=== PATIENT | male | born 1990 | race Caucasian/White ===

== ENCOUNTER 2016-05-20 20:12 | Inpatient (IN) | payer OTHER ==
--- NOTE | 2016-05-20 21:17 | EDPHY ---
H & P Smoking Status: Light smoker Time Seen by Provider: 05/20/16 20:36 HPI/ROS: HPI Unable to sleep. 25-year-old male by private vehicle with his parents. 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 He reports that he has a history of bipolar disorder. He has been on lithium but is not taking it and the last year. He reports that about a week ago he started feeling more pressure from the world and felt he was on the verge of a psychotic break. He started taking his lithium again at 300 mg daily a week ago. He reports that his symptoms have continued. He reports that he does not feel he is on the verge of a psychotic break right now but states that he has been unable to sleep for days and thinks he needs help. He states he is not suicidal or homicidal. His parents drove from [place] to bring him to the emergency department here and are present in the examination room with him. ROS: Constitutional: No fever, no chills. No weakness. Eyes: No discharge. No changes in vision. ENT: No sore throat. No nasal congestion or rhinorrhea. Respiratory: No cough. No shortness of breath. Cardiac: No chest pain, no palpitations. Gastrointestinal: No abdominal pain, no vomiting, no diarrhea. Genitourinary: No hematuria. No dysuria or increased frequency with urination. Musculoskeletal: No back pain. No neck pain. No myalgias or arthralgias. Skin: No rashes. Neurological: No headache. No focal weakness or altered sensation. Past medical history: As above. Social history: As above. Here with his parents. Physical Exam: General Appearance: Alert, flat affect. This patient is responding to questions appropriately and in full sentences. This patient appears well- hydrated and well-nourished. Eyes: Pupils equal and round no pallor or injection. No lid edema, erythema or injection. ENT, Mouth: Mucous membranes are moist. The pharyngeal tissues are unremarkable. No edema or swelling. No asymmetry suggestive of abscess. No erythema or exudates. Respiratory: There are no retractions, lungs are clear to auscultation with good air movement bilaterally. Cardiovascular: Regular rate and rhythm. No murmur. Gastrointestinal: Abdomen is soft and nontender, no masses, bowel sounds normal. No focal tenderness at McBurney's point. No Savage sign. Neurological: Motor sensory function is grossly intact. Cranial nerves are normal. Gait is normal. Skin: Warm and dry, no rashes. Musculoskeletal: Neck is supple and nontender. Extremities are symmetrical. All joints range without pain or impingement. Psychiatric: No agitation. Flat affect. Database: EKG: Imaging: Procedures: Emergency department course: After my evaluation of the patient I discussed his presentation with [facility]. They will see him shortly for a preliminary evaluation. Customary blood work ordered. 10:45 p.m., patient awaiting evaluation by [facility]. Care will be turned over to Dr. Griggs 11:00 p.m.. Differential Diagnosis: The differential diagnosis on this patient includes but is not limited to bipolar, schizophrenia, depression. This represents a partial list of diagnoses considered. These considerations are based on history, physical exam , past history, reassessment and diagnostic testing. (Zee Weems) Constitutional: Initial Vital Signs Temperature (C) 36.9 C 05/20/16 20:22 Heart Rate 110 H 05/20/16 20:22 Respiratory Rate 18 05/20/16 20:22 Blood Pressure 154/94 H 05/20/16 20:22 O2 Sat (%) 98 05/20/16 20:22 O2 Delivery Mode Room Air Allergies/Adverse Reactions: Sulfa (Sulfonamide Antibiotics) Allergy (Verified 02/16/15 16:34) Home Medications: Medication Instructions Recorded [place] 02/16/15 Medical Decision Making ED Course/Re-evaluation: 1:30 a.m.- The patient has become more agitated throughout his time in the emergency room, pacing, trying to leave, removing his IV. He has been moved to room 16. I have placed him on a detainer because of this. He is currently awaiting further mental health assessment. He tells me I just want to get out of here. I will order a dose of Zyprexa. 4:30 a.m.- The patient became agitated again and ran out of his room in an attempt to leave the emergency room and began to yell. [place] police who were on scene with another patient responded and the patient was tased once. He was brought back to his room and given a dose of Haldol. He did not have any chest pain, shortness of breath, palpitations. 7:00 a.m.- The patient received a 2nd dose of Haldol around 5:00 a.m. for continued agitation with improvement in his mentation. He is now resting. The case is signed out to the oncoming provider Dr. Marco Jarrell. The patient is still awaiting mental health evaluation. (Elisa Griggs) Other Provider: I assumed care of the patient at 7:00 a.m. pending psychiatric evaluation. Update at 7:30 a.m.: After evaluation by the [facility] psychiatric shirt operator the patient was felt to be dangerous to himself. The patient was placed on an M1 psychiatric hold with plans to admit him to an inpatient psychiatric facility. Update at 11:00 a.m.: The patient has been accepted for inpatient psychiatric admission by Dr. Gunderson at [facility]. I have filled out the [facility] transfer paperwork. (Andre Jarrell) - Data Points Laboratory Results: Laboratory Results 05/20/16 21:25 05/20/16 21:25 Medications Given: Discontinued Medications Haloperidol Lactate (Haldol Injection) 5 mg IM EDNOW ONE Stop: 05/21/16 04:34 Last Admin: 05/21/16 04:39 Dose: 5 mg Haloperidol Lactate (Haldol Injection) 5 mg IM EDNOW ONE Stop: 05/21/16 04:59 Last Admin: 05/21/16 05:02 Dose: 5 mg Olanzapine (Zyprexa Zydis) 10 mg PO EDNOW ONE Stop: 05/21/16 01:36 Last Admin: 05/21/16 01:41 Dose: 10 mg Departure - Departure Disposition: Other Psych, Not [place] Clinical Impression: Bipolar 1 disorder Condition: Good Referrals: NONE *PRIMARY CARE P,. [Primary Care Provider] - As per Instructions
[2016-05-20 21:36] LABS: % IMMATURE GRANULYOCYTES 0.3 % (0.0-1.1); ABSOLUTE IMMATURE GRANULOCYTES 0.03 10^3/uL (0.00-0.10); ADD DIFF? NO; ADD MORPH? NO; ADD SCAN? NO; ATYPICAL LYMPHOCYTE FLAG 20 (0-99); FRAGMENT RBC FLAG 0 (0-99); HEMATOCRIT 50.4 % (40.0-51.0); HEMOGLOBIN 17.9 g/dL (13.7-17.5); LEFT SHIFT FLG 0 (0-99); LIPEMIA HEMOLYSIS FLAG 90 (0-99); MEAN CELL HEMOGLOBIN 33.3 pg (27.9-34.1); MEAN CELL HEMOGLOBIN CONCENTR. 35.5 g/dL (32.4-36.7); MEAN CELL VOLUME 93.9 fL (81.5-99.8); MEAN PLATELET VOLUME 9.4 fL (8.7-11.7); PLATELET CLUMPS FLAG 0 (0-99); PLATELET COUNT 254 10^3/uL (150-400); RED BLOOD CELL COUNT 5.37 10^6/uL (4.40-6.38); RED CELL DISTRIBUTION WIDTH 12.3 % (11.5-15.2)
[2016-05-20 21:50] LABS: ALANINE AMINOTRANSFERASE 48 IU/L (21-72); ALBUMIN 4.9 g/dL (3.5-5.0); ALKALINE PHOSPHATASE 82 IU/L (38-126); ANION GAP 17 mEq/L (8-20); ASPARTATE AMINOTRANSFERASE 33 IU/L (17-59); BILIRUBIN,TOTAL 0.9 mg/dL (0.1-1.4); BILIRUBIN-CONJUGATED 0.5 mg/dL (0.0-0.5); BILIRUBIN-UNCONJUGATED 0.4 mg/dL (0.0-1.1); CALCIUM 9.9 mg/dL (8.5-10.4); CARBON DIOXIDE 25 mEq/l (22-31); CHLORIDE 102 mEq/L (97-110); CREATININE 1.2 mg/dL (0.7-1.3); ETHANOL SERUM < 10 mg/dL (0-10); GLOMERULAR FILTRATION RATE > 60; GLUCOSE 88 mg/dL (70-100); LITHIUM 0.8 mEq/L (0.6-1.2); POTASSIUM 4.6 mEq/L (3.5-5.2); SODIUM 139 mEq/L (134-144); TOTAL PROTEIN 7.9 g/dL (6.3-8.2)
[2016-05-21] MEDS ORDERED: OLANZapine DISINTEGR 10 MG TAB PO ONE (01:35)
[2016-05-21] MEDS ORDERED: OLANZapine DISINTEGR 10 MG TAB ONE (01:35)
[2016-05-21] MEDS ORDERED: NICOTINE POLACRILEX 2 MG GUM B ONE (01:38)
[2016-05-21] MEDS ORDERED: NICOTINE POLACRILEX 2 MG GUM B PRN (01:41)
[2016-05-21] MEDS ORDERED: HALOPERIDOL LACT 5 MG/ML INJ IM ONE ×2 (04:33→04:58)
[2016-05-21] MEDS ORDERED: MAGNESIUM HYDROXIDE 30 ML UDCUP PO PRN (21:00)
[2016-05-21] MEDS ORDERED: MAG HYDROX/AL HYDROX/SIMETH 30 ML UDCUP PO PRN (21:00)
[2016-05-21] MEDS: LORazepam 0.5 MG TAB PO PRN (22:53)
[2016-05-22] MEDS ORDERED: QUEtiapine FUMARATE 50 MG TAB PO PRN (02:16)
--- NOTE | 2016-05-22 08:56 | GCON ---
[f rep st] CONSULTATION INTERNAL MEDICINE CONSULT. DATE OF CONSULTATION: 05/22/2016 REFERRING PHYSICIAN: Cheryl Cabrales MD REASON FOR REFERRAL: Medical evaluation. HISTORY OF PRESENT ILLNESS: Jose D is a 25-year-old, otherwise healthy man, who comes in with increase d bipolar symptoms. He has a history previously of bipolar disease; however, when he was doing well he stopped his lithium. Over the past several weeks, he started feeling more escalated so started h is lithium a week ago; however, that did not change his mood and he was brought in by his parents. He otherwise feels well. He denies any recent fevers, chills, illnesses. He has had no coughing, sh ortness of breath, dyspnea on exertion. Denies any abdominal complaints, urinary symptoms, bowel david nges, lower extremity edema, joint pains, neurologic symptoms. He does get some chest pressure only when he gets anxious. He is not having any of that now. REVIEW OF SYSTEMS: A 10-point review of systems was done and is negative except as stated in the HPI . PAST MEDICAL HISTORY: Left shoulder surgery. 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 He smokes 3-4 cigarettes a day and drinks 3-4 alcoholic beverages per day, but he says he tries not to drink every day. He also smokes occasional marijuana. FAMILY HISTORY: Mother and dad are healthy. CURRENT MEDICATIONS: He was taking lithium 300 mg daily prior to admission. ALLERGIES: Sulfa. PHYSICAL EXAMINATION: VITAL SIGNS: Afebrile. Heart rate is 85, blood pressure 145/71, respirations 12. He is 97% on room air. GENERAL: He is a thin healthy-appearing 25-year-old, in no distress. He is alert and oriented. Speech is fluent. HEENT: Atraumatic. Pupils equal, extraocular movement s intact. Mucous membranes moist. Oropharynx clear. NECK: Supple. No adenopathy. HEART: Regula r rate and rhythm. No murmurs, gallops, or rubs. LUNGS: Clear to auscultation. No wheeze, rhonchi , or rales. ABDOMEN: Soft, nontender, nondistended. No masses. Normoactive bowel sounds. EXTREMI TIES: No clubbing, cyanosis, or edema. SKIN: Intact. No rash. NEUROLOGICAL: He is intact. [facility] ULOSKELETAL: No joint deformities or effusions. LABORATORY DATA: CBC is within normal limits. Chemistry and electrolytes are normal. LFTs are norm al. Urinalysis is negative. [place] level was 0.8. ASSESSMENT AND PLAN: 1. A 25-year-old, admitted with feeling more pressure and felt he was on the verge of a psychotic br eak. Please see Dr. Cabrales' assessment and plan for full details. 2. Tobacco use. Tobacco cessation counseling. Thank you for the consultation. /[id number]/MODL
[2016-05-22] MEDS ORDERED: LITHIUM CARBONATE ER 450 MG TAB PO SCH (09:00)
[2016-05-22] MEDS ORDERED: BENZTROPINE MESYLATE 2 MG/2 ML INJ IM ONE (13:30)
[2016-05-22] MEDS ORDERED: diphenhydrAMINE 25 MG CAP PO ONE ×2 (14:01→14:30)
[2016-05-22] MEDS: LORazepam 0.5 MG TAB PO PRN (18:29)
[2016-05-22] MEDS ORDERED: risperiDONE 0.5 MG TAB PO SCH (21:00)
[2016-05-22] MEDS: LITHIUM CARBONATE 300 MG CAP PO SCH (21:34)
[2016-05-22] MEDS: diphenhydrAMINE 50 MG CAP PO SCH (21:51)
--- NOTE | 2016-05-22 22:58 | SOAPPROG ---
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 Was dxd with SZP at that time, on Haldol Dec then Dx changed to BMD and remained on [place] for 1.5yr until self taper off 1yr ago. 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 Received Zyprexa 10mg x 1 in ED. Later, agitated and charged an RN in ED and was tazed by nearby police and fire dispatcher. Received Haldol 5mg IM x 2. Received Eskalith 450mg this AM. Dictated Psych Admission to follow. Plan: -Discussed med options- will start with low-dose Risperdal at 0.5mg, with Benadryl 50mg qhs -start [place] at lower dose 300mg qam. Pt reports hx of maintenance at 600mg -add cogentin 1mg bid prn -cont on [facility] 05/22/16 16:47 This am, noted with significant tongue dystonia and difficulty speaking, occurring several times during interview. Agreed to Cogentin 1mg IM, and then also Benadryl 50mg po x 1 with resolution of dystonia. Reported ongoing psychotic sxs of thought insertion that he was "good, powerful , creative", Thought withdrawal, occasional thought broadcasting, and AH of others commenting on his thoughts. Denied SI/HI. Poor sleep, and mood swings/ affective lability. Presently calm with good insight, states he tries to keep self in "present" moment, by actions such as smelling lotion on his hands, when experiencing psychosis. 05/22/16 23:30 Objective: Vital Signs Temp Pulse Resp BP Pulse Ox 37.0 C 85 12 145/71 H 97 05/22/16 06:14 05/22/16 06:14 05/22/16 06:14 05/22/16 06:14 05/22/16 06:14 - Pending Discharge Pending Discharge Within 24 Hours: No Pending Discharge Within 48 Hours: No ICD10 Worksheet Patient Problems: Problems Problem Status Diagnosed Bipolar 1 disorder Acute
[2016-05-23] MEDS: LORazepam 0.5 MG TAB PO PRN (04:54)
[2016-05-23] MEDS: LITHIUM CARBONATE 300 MG CAP PO SCH ×2 (08:59→21:36)
[2016-05-23] MEDS ORDERED: risperiDONE 0.5 MG TAB PO SCH (10:42)
--- NOTE | 2016-05-23 10:49 | SOAPPROG ---
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 Pt was dx with SCZ 3 years ago when hospitalized in [place], [place] and was put on Haldol dec. He was then rediagnosed as Bipolar and put on [place]. He tapered off [place] and began not sleeping and having thought insertion and other psychotic sx. Plan:Increase Riperdal to 1mg QHS tonight-no longer having EPS Pt agrees to sign in Vol. continue [place] 300mg BID-currently has no sx of erik 05/23/16 10:45 Subjective: "Good." Objective: Vital Signs Temp Pulse Resp BP Pulse Ox 36.6 C 102 H 16 138/80 H 98 05/23/16 04:53 05/23/16 04:53 05/23/16 04:53 05/23/16 04:53 05/23/16 04:53 Pt is A+O x4 mood-"good" affect-flat + paranoid I thoughts-vague, delayed denies S/H I denies current A/V H recent delusions-thought insertion speech-monotone memory-intact no NOE I/J-good - Time Spent With Patient Time Spent With Patient: 25' - Pending Discharge Pending Discharge Within 24 Hours: No Pending Discharge Within 48 Hours: No ICD10 Worksheet Patient Problems: Problems Problem Status Diagnosed Bipolar 1 disorder Acute
[2016-05-23] MEDS ORDERED: FLU VACC QS 2016-17(3-64YR)/PF 0.5 ML SYR (FLUARIX QUAD) IM ONE (11:57)
[2016-05-23] MEDS: diphenhydrAMINE 50 MG CAP PO SCH (21:36)
[2016-05-24] MEDS: NICOTINE POLACRILEX 2 MG GUM B PRN ×3 (02:15→13:45)
[2016-05-24] MEDS: LORazepam 0.5 MG TAB PO PRN ×3 (06:42→13:46)
[2016-05-24] MEDS: LITHIUM CARBONATE 300 MG CAP PO SCH ×2 (10:53→19:56)
--- NOTE | 2016-05-24 11:50 | SOAPPROG ---
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 Pt was dx with SCZ 3 years ago when hospitalized in [place], [place] and was put on Haldol dec. He was then rediagnosed as Bipolar and put on [employer]. He tapered off [employer] and began not sleeping and having thought insertion and other psychotic sx. Plan: Will D/C Risperdal and start Zyprexa 15mg QHS Pt signed in Vol. continue [employer] 300mg BID and check level 05/24/16 11:46 Subjective: "I feel paranoid." Objective: Vital Signs Temp Pulse Resp BP Pulse Ox 36.8 C 89 16 139/91 H 96 05/24/16 06:00 05/24/16 06:00 05/24/16 06:00 05/24/16 06:00 05/24/16 06:00 Pt is A+O x4 mood-"paranoid" affect-blunted denies A/V H + thought insertion + paranoid delusions slept 0 hours last night thoughts-vague, delayed, paranoid memory-fair conc-poor + thought blocking no S/H I I/J-fair - Time Spent With Patient Time Spent With Patient: 20' - Pending Discharge Pending Discharge Within 24 Hours: No Pending Discharge Within 48 Hours: No ICD10 Worksheet Patient Problems: Problems Problem Status Diagnosed Bipolar 1 disorder Acute
[2016-05-24] MEDS: BENZTROPINE MESYLATE 1 MG TAB PO PRN ×2 (13:38→13:46)
--- NOTE | 2016-05-24 15:43 | BAPA ---
[f rep st] ADMISSION PSYCHIATRIC ASSESSMENT DATE OF SERVICE: 05/22/2016 CHIEF COMPLAINT: "My parents convinced me to come in because I was having the same symptoms as my previous (psychiatric) commitment (three years ago)." HISTORY OF PRESENT ILLNESS: The patient is a 25-year-old male. Never . No children. Recent graduate from with honors, with master' s in engineering, environmental and civil. Reports one week prior to admission he started feeling pressure from the world and that he was on the verge of a psychotic break. He started feeling extremely alone in the world and he was not sleeping for several days prior to admission. At this time he resumed lithium 300 mg daily, which he had not been taking for approximately one year hoping symptoms would get better under control, but they continued to worsened and he endorsed psychotic symptoms of experiencing auditory hallucinations of others commenting on his thoughts, thought insertion "that I am powerful, good, creative." Also felt withdrawal and occasional thought blocking. He has also been experiencing mood swings ranging from crying spells/tearfulness to extreme irritability and short fused. He denied any suicidal or homicidal ideation. One month prior to worsening of symptoms, he did acknowledge a decreased need for sleep from normal 8 hours to approximately 3 to 4 hours per night. He denied any substance use history; however, drinks one cup of beer daily with last drink on 05/20/2016. The patient reports similar psychotic symptoms resulting in his first psychiatric hospitalization three years ago (this is the second), having been diagnosed with schizophrenia, but thereafter his diagnosis was changed to bipolar. Of note, while in emergency department following evaluation by [facility], the patient became acutely agitated and wanted to change rooms because it reminded him too much of his first hospitalization experience. He apparently became verbally aggressive and charged a nurse after which a nearby police officer booking tased him. He was given 5 mg IM Haldol twice and this was subsequent to 10 mg olanzapine given earlier upon arrival in the ED. There have been no further such incidents. PAST PSYCHIATRIC HISTORY: As noted above. First psychiatric hospitalization in [place] three years ago. Diagnosed with schizophrenia, started on Haldol decanoate. Approximately 1-1/2 years ago, diagnosis changed to Bipolar and patient was prescribed lithium 600 mg daily. One year ago after feeling stable, the patient self-tapered lithium to discontinuation. He has not seen a psychiatrist in over one year, however, has been working with a therapist named Dr. Holloway. HISTORY OF HARM TO SELF/OTHERS: The patient denied any history of suicidal attempts or history of SI/HI or harm to others. HISTORY OF TRAUMA: The patient denied any childhood trauma nor any physical, emotional or sexual abuse history. PAST MEDICAL HISTORY: L shoulder arthroscopic surgery 2009, due to injuries from playing football when younger and subsequent re-injuries due to outdoor sporting activities. Also hx back injury requiring back brace x 3mo several years ago. No other acute/current medical issues. CURRENT MEDICATIONS: [place] 300 mg daily, self-started approximately three days ago from his own previous supply. ALLERGIES: Sulfa. SOCIAL HISTORY: The patient reports a supportive family. Currently lives in [place] with three roommates and they get along well. Roommates have recently been worried about him because of his insomnia. The patient's father is and remarried. Mother was diagnosed with cancer and . 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 He denies being spiritual or sabianist. Reports he enjoys building things and seeing how they work. Also enjoys outdoor activities such as skiing, hiking, camping and playing soccer. PAST LEGAL HISTORY: Currently has a legal issue which is being deferred until March 2017 after which charges will be wiped from his records. He was charged with felony theft and misdemeanor criminal mischief related to stealing a bike valued over $5000. Apparently this occurred during his psychotic break and he reports he did not steal it, but it was a miscommunication. No other legal history. FAMILY PSYCHIATRIC HISTORY: His mother had diagnosis of schizophrenia. MENTAL STATUS EXAM ON ADMISSION: Patient was a casually dressed, tall, well kempt, male with good eye contact. Normal volume and rate of speech. Normal psychomotor activity. During interview, however, significant tongue dystonia occurred several times, affecting ability to speak/form words (patient was given Cogentin and Benadryl with resolution). Mood was "okay." Affect was controlled. Thought process/content: linear, reality based, but notable for periods of occasional thought blocking. Endorsed thought insertion "that I am powerful, good, creative." Also experienced thought withdrawal, feeling others take thoughts from his head. Positive auditory hallucinations of others commenting on his thoughts recently, although not currently. He denied any visual or olfactory hallucinations. No flight of ideas or racing thoughts. Occasional ideas of reference. Reports trying to maintain himself in the present state and reality based by using some coping strategies such as smelling moisturizer on his hands. Insight: Good. Judgment: Good. Denied any suicidal or homicidal ideation. Alert and oriented x 4. Recognizes need for psychiatric help. ASSESSMENT: This is a 25-year-old male with a history of schizophrenia diagnosed during first psychotic break and first hospitalization three years ago. Now experiencing similar symptoms and seeking help before symptoms worsen. Approximately two years ago schizophrenia diagnosis was changed to bipolar and Haldol was changed to lithium. No meds or psychiatric treatment times one year. Current presentation and symptomatology are suggestive of schizophrenia or schizoaffective disorder, but will need to further obtain time line of mood symptoms and associated psychotic symptoms in order to clarify diagnosis. The patient is on M1 and psychiatric hospitalization is indicated for stabilization and treatment. DIAGANOSIS ON ADMISSION: 1. Schizophrenia, acute exacerbation; r/o Schizoaffective d/o, bipolar type acute exacerbation vs BMD manic with psychotic features 2. Acute Dystonia PLAN: 1. Continue M1 hold. 2. Patient received lithium (Eskalith 450 mg) this a.m. Approximately 24 hours earlier, the patient received 10 mg IM Haldol and Zyprexa 10 mg. This a.m. due to evidence of dystonia, the patient received Cogentin 1 mg IM and Benadryl 50 mg p.o. with resolution of EPS. 3. Risperdal 0.5 mg p.o. q.h.s. This is available in long-acting injectable. Not currently indicated, however. Prior history indicates patient required Haldol decanoate IM. Need to obtain history from previous hospitalization for further details. 4. Benadryl 50 mg p.o. q.h.s., will help with sleep and offset any EPS from Risperdal. Add Cogentin 1 mg p.o. b.i.d. p.r.n. for now. 5. Change lithium to 300 mg p.o. daily. Will consider either increase or discontinue. Reports stability on 600 mg daily in the past. Will need to further assess to determine whether mood stabilizer necessary versus just a neuroleptic. [place] also may have contributed to precipitating EPS by antipsychotics. 6. Continue current safety restrictions and unit restriction. ESTIMATED LENGTH OF STAY: Four to five days. /[id number]/MODL MTDClau
[2016-05-24] MEDS: diphenhydrAMINE 50 MG CAP PO SCH (19:56)
[2016-05-24] MEDS: OLANZapine DISINTEGR 5 MG TAB PO SCH (19:56)
[2016-05-24] MEDS ORDERED: OLANZapine 2.5 MG TAB PO SCH (21:00)
[2016-05-25] MEDS: LORazepam 0.5 MG TAB PO PRN ×3 (05:36→18:35)
[2016-05-25] MEDS: BENZTROPINE MESYLATE 1 MG TAB PO PRN (05:36)
[2016-05-25] MEDS: LITHIUM CARBONATE 300 MG CAP PO SCH ×2 (07:37→18:41)
[2016-05-25] MEDS: NICOTINE POLACRILEX 2 MG GUM B PRN (10:45)
--- NOTE | 2016-05-25 11:16 | SOAPPROG ---
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 Pt was dx with SCZ 3 years ago when hospitalized in [place], [place] and was put on Haldol dec. He was then rediagnosed as Bipolar and put on [place]. He tapered off [place] and began not sleeping and having thought insertion and other psychotic sx. Plan: Will continue Zyprexa 15mg QHS-no side effects and pt slept 7 hours Pt signed in Vol. continue [place] 300mg BID and check lev 05/28 AG 05/25/16 11:12 Subjective: "There's a building across the [place] growing weed..the microwaves." Objective: Vital Signs Temp Pulse Resp BP Pulse Ox 36.8 C 112 H 16 132/79 H 97 05/25/16 06:00 05/25/16 06:00 05/25/16 06:00 05/25/16 06:00 05/25/16 06:00 Pt is A+O x4 mood-anxious affect-blunted +AH + delusions of thought insertion no S/H I + paranoid delusions-feels people are talking about him, people growing MJ nearby slept 7 hours states appetite is good thoughts-loose at times, paranoid speech-monotone conc-por memory-fair I/J-fair - Time Spent With Patient Time Spent With Patient: 25' - Pending Discharge Pending Discharge Within 24 Hours: No Pending Discharge Within 48 Hours: No ICD10 Worksheet Patient Problems: Problems Problem Status Diagnosed Bipolar 1 disorder Acute
[2016-05-25] MEDS: OLANZapine DISINTEGR 5 MG TAB PO SCH (18:42)
[2016-05-25] MEDS: diphenhydrAMINE 50 MG CAP PO SCH (21:49)
[2016-05-26] MEDS: LITHIUM CARBONATE 300 MG CAP PO SCH ×2 (08:12→20:45)
[2016-05-26] MEDS: LORazepam 0.5 MG TAB PO PRN ×2 (10:34→17:35)
--- NOTE | 2016-05-26 12:30 | SOAPPROG ---
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 Pt was dx with SCZ 3 years ago when hospitalized in [place], [place] and was put on Haldol dec. He was then rediagnosed as Bipolar and put on [place]. He tapered off [place] and began not sleeping and having thought insertion and other psychotic sx. Plan: Will continue Zyprexa 15mg QHS-no side effects and pt slept 10 hours Pt signed in Vol. continue [place] 300mg BID and check lev 05/28 AG 05/26/16 12:27 Subjective: Pt is paranoid Objective: Vital Signs Temp Pulse Resp BP Pulse Ox 36.4 C 91 12 118/54 L 100 05/26/16 07:00 05/26/16 07:00 05/26/16 07:00 05/26/16 07:00 05/26/16 07:00 Pt is A+O x4 mood-anxious affect-constricted + paranoid delusions thoughts-delayed, illogical at times + thought blocking +AH No VH no S/H I speech-monotone memory-fair no NOE I/J-fair - Time Spent With Patient Time Spent With Patient: 20' - Pending Discharge Pending Discharge Within 24 Hours: No Pending Discharge Within 48 Hours: No ICD10 Worksheet Patient Problems: Problems Problem Status Diagnosed Bipolar 1 disorder Acute
[2016-05-26] MEDS: NICOTINE POLACRILEX 2 MG GUM B PRN ×2 (14:54→17:32)
[2016-05-26] MEDS: OLANZapine DISINTEGR 5 MG TAB PO SCH (20:45)
[2016-05-26] MEDS: diphenhydrAMINE 50 MG CAP PO SCH (20:45)
[2016-05-27] MEDS: LITHIUM CARBONATE 300 MG CAP PO SCH ×2 (07:43→18:06)
--- NOTE | 2016-05-27 10:29 | SOAPPROG ---
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 Pt was dx with SCZ 3 years ago when hospitalized in [place], [place] and was put on Haldol dec. He was then rediagnosed as Bipolar and put on [place]. He tapered off [place] and began not sleeping and having thought insertion and other psychotic sx. Pt symptoms are more consistent with Schizophrenia right now as pt has classic positive sx of SCZ and no mood symptoms. Plan: Will continue Zyprexa 15mg QHS-no side effects and pt slept 7 hours last night Pt signed in Vol. continue [place] 300mg BID and check lev 05/28 AG Will write shave order 05/27/16 10:26 Subjective: pt would like to shave Objective: Vital Signs Temp Pulse Resp BP Pulse Ox 36.4 C 79 12 118/68 98 05/27/16 06:55 05/27/16 06:55 05/27/16 06:55 05/27/16 06:55 05/27/16 06:55 Pt is A+O x4 mood-neutral affect-blunted denies AH but is responding to internal stimuli + paranoid delusions +thought blocking no S/H I speech-monotone memory-intact conc-poor no NOE thoughts-delayed, paranoid I/J-fair - Time Spent With Patient Time Spent With Patient: 20' - Pending Discharge Pending Discharge Within 24 Hours: No Pending Discharge Within 48 Hours: No ICD10 Worksheet Patient Problems: Problems Problem Status Diagnosed Bipolar 1 disorder Acute
[2016-05-27] MEDS ORDERED: FLU VACC QS 2016-17(3-64YR)/PF 0.5 ML SYR (FLUARIX QUAD) IM ONE (12:00)
[2016-05-27] MEDS: NICOTINE POLACRILEX 2 MG GUM B PRN (13:17)
[2016-05-27] MEDS: diphenhydrAMINE 50 MG CAP PO SCH (20:16)
[2016-05-27] MEDS: OLANZapine DISINTEGR 5 MG TAB PO SCH (20:16)
[2016-05-28] MEDS: LITHIUM CARBONATE 300 MG CAP PO SCH ×2 (08:50→20:56)
[2016-05-28] MEDS: LORazepam 0.5 MG TAB PO PRN (08:55)
[2016-05-28 10:05] LABS: LITHIUM 0.4 mEq/L (0.6-1.2)
--- NOTE | 2016-05-28 10:14 | SOAPPROG ---
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 Was dxd with SZP at that time, on Haldol Dec then Dx changed to BMD and remained on [place] for 1.5yr until self taper off 1yr ago. vol Continues with prominent psychotic symptoms. Plan: -add one-time zyprexa 10mg now. incr HS zyprexa from 15mg to 20mg. will also add 5mg qam starting tomorrow for tdd 25mg. monitor for EPS side effects. -continue [place] 300mg bid. level 0.4. would increase but will incr antipsychotic first since no evid of erik, also will consider d/c lithium since seems with primary psychotic d/o -cont cogentin 1mg bid prn . d/c benadryl, zyprexa likely sedating enough and has cogentin prn for eps. check orthostatics. -is voluntary with AG privs. will d/c AG privs- pt very psychotic 05/28/16 10:14 per staff, pt slept 7hr. yesterday asked to call and order [employer], instead called 911 and reported hearing gunshots and 3 police arrived on unit subsequently. voluntary status. 05/28/16 13:02 on interview, pt states he is doing "not good". I feel that others are controlling my mind. Thinks meds are helping sleep, but actually not sure, because "I slept fine without it". "did you feel that?" feels the ground moved. asked again during interview. reports feels off-balance. not dizzy, no spinning sensation. gait steady. further demonstrates with his H2O cup, taking top off, then standing and staring at H2O pitcher "looking for waves" as he leans his body over sideways. states when he reads in milieu, people in nsg station are laughing at me, they are making jokes about my thoughts. if I think something that's funny, they are responding to that. If I think something encouraging, they beep something, it's like they are training [employer]'s dog. feels symptoms are worse since in hospital and [place] is not working. I can't talk right now. I would rather be a vegetable. MSE: cooperative, nml speech rate/vol, nml eye contact mood: I feel stressed out and depressed. I was normal but doing everything really fast before I was committed. Then it turned into a betting game. the nurse put something into my vein for 4 hours (talking about ED experience), the nurse never came back... affect: blunted. at times hypervigilant. everyone hears my conversation and my thoughts, everyone hears them. very frustrated. denies SI/HI. denied AH although reports "since in hospital, I hear gunshots. it's scary." denied VH/OH. +TI/TW and prominent IOR as noted. +paranoid delusions. +thought blocking since my thoughts are being recorded, any thought I have is being used against me. JOHANN type level...this rolando just called me [employer]. he is trying to make a business (peer on phone who did say "[employer]"). Objective: Vital Signs Temp Pulse Resp BP Pulse Ox 36.7 C 100 18 136/69 H 100 05/28/16 06:00 05/28/16 06:00 05/28/16 06:00 05/28/16 06:00 05/28/16 06:00 - Time Spent With Patient Time Spent With Patient: 35 min - Pending Discharge Pending Discharge Within 24 Hours: No Pending Discharge Within 48 Hours: No ICD10 Worksheet Patient Problems: Problems Problem Status Diagnosed Bipolar 1 disorder Acute
[2016-05-28] MEDS: NICOTINE POLACRILEX 2 MG GUM B PRN (10:57)
[2016-05-28] MEDS ORDERED: OLANZapine DISINTEGR 10 MG TAB PO ONE (13:24)
[2016-05-28] MEDS: OLANZapine DISINTEGR 10 MG TAB PO SCH (20:56)
[2016-05-29] MEDS: LITHIUM CARBONATE 300 MG CAP PO SCH (08:39)
[2016-05-29] MEDS: OLANZapine DISINTEGR 5 MG TAB PO SCH (08:39)
[2016-05-29] MEDS: NICOTINE POLACRILEX 2 MG GUM B PRN (11:19)
--- NOTE | 2016-05-29 15:10 | SOAPPROG ---
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 Was dxd with SZP at that time, on Haldol Dec then Dx changed to BMD and remained on [place] for 1.5yr until self taper off 1yr ago. vol Continues with prominent psychotic symptoms. No mood symptoms. Increased zyprexa and will d/c lithium Plan: -continue zyprexa 10/29. -d/c lithium. -cont cogentin 1mg bid prn 05/28/16 10:14 per staff, pt slept 7hr. yesterday asked to call and order [employer], instead called 911 and reported hearing gunshots and 3 police arrived on unit subsequently. voluntary status. 05/28/16 13:02 on interview, pt states he is doing "not good". I feel that others are controlling my mind. Thinks meds are helping sleep, but actually not sure, because "I slept fine without it". "did you feel that?" feels the ground moved. asked again during interview. reports feels off-balance. not dizzy, no spinning sensation. gait steady. further demonstrates with his H2O cup, taking top off, then standing and staring at H2O pitcher "looking for waves" as he leans his body over sideways. states when he reads in milieu, people in nsg station are laughing at me, they are making jokes about my thoughts. if I think something that's funny, they are responding to that. If I think something encouraging, they beep something, it's like they are training [employer]'s dog. feels symptoms are worse since in hospital and [place] is not working. I can't talk right now. I would rather be a vegetable. MSE: cooperative, nml speech rate/vol, nml eye contact mood: I feel stressed out and depressed. I was normal but doing everything really fast before I was committed. Then it turned into a betting game. the nurse put something into my vein for 4 hours (talking about ED experience), the nurse never came back... affect: blunted. at times hypervigilant. everyone hears my conversation and my thoughts, everyone hears them. very frustrated. denies SI/HI. denied AH although reports "since in hospital, I hear gunshots. it's scary." denied VH/OH. +TI/TW and prominent IOR as noted. +paranoid delusions. +thought blocking since my thoughts are being recorded, any thought I have is being used against me. JOHANN type level...this rolando just called me [employer]. he is trying to make a business (peer on phone who did say "[employer]"). 05/29/16 14:56 per staff, pt slept last night 9.5hr on interview, pt denied any med s/e to incr zyprexa. no am sedation with 5mg still reporting experience of thought insertion and ideas of reference, expressing insight into thought disorder good eye contact, low/nml vol and nml rate speech denied mood symptoms. does not feel lithium is doing anything, and is okay with discontinuing. flat affect, mood "okay", denied si/hi or current ah/vh denied med s/e palliative care physician contacted family for further info- pls refer to note for details. Objective: Vital Signs Temp Pulse Resp BP Pulse Ox 36.7 C 65 14 119/66 98 05/29/16 06:00 05/29/16 06:00 05/29/16 06:00 05/29/16 06:00 05/29/16 06:00 - Time Spent With Patient Time Spent With Patient: 15 min - Pending Discharge Pending Discharge Within 24 Hours: No Pending Discharge Within 48 Hours: No ICD10 Worksheet Patient Problems: Problems Problem Status Diagnosed Bipolar 1 disorder Acute
[2016-05-29] MEDS: LORazepam 0.5 MG TAB PO PRN (18:28)
[2016-05-29] MEDS: OLANZapine DISINTEGR 10 MG TAB PO SCH (21:08)
[2016-05-30] MEDS: OLANZapine DISINTEGR 5 MG TAB PO SCH (07:58)
[2016-05-30] MEDS ORDERED: IBUPROFEN 200 MG TAB PO ONE ×2 (09:18→11:00)
--- NOTE | 2016-05-30 11:15 | SOAPPROG ---
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 Pt was dx with SCZ 3 years ago when hospitalized in [place], [place] and was put on Haldol dec. He was then rediagnosed as Bipolar and put on [place]. He tapered off [place] and began not sleeping and having thought insertion and other psychotic sx. Pt symptoms are more consistent with Schizophrenia right now as pt has classic positive sx of SCZ and no mood symptoms. Plan: Will continue Zyprexa 20 mg QHS Pt signed in Vol. [place] D/C'd as pt has no current mood sx AG Will write shave order 05/30/16 11:12 Subjective: states he heard gunshots nearby Objective: Vital Signs Temp Pulse Resp BP Pulse Ox 36.9 C 78 14 116/69 99 05/30/16 06:00 05/30/16 06:00 05/30/16 06:00 05/30/16 06:00 05/30/16 06:00 Pt is A+O, preoccupied mood-anxious at times affect-blunted +AH + par I +thought insertion no S/H I slept 9 hours good appetite and energy level thoughts-vague, paranoid +thought blocking no mood sx no NOE memory/conc-impaired by psychosis I/J-fair - Time Spent With Patient Time Spent With Patient: 25' - Pending Discharge Pending Discharge Within 24 Hours: No Pending Discharge Within 48 Hours: No ICD10 Worksheet Patient Problems: Problems Problem Status Diagnosed Bipolar 1 disorder Acute
[2016-05-30] MEDS: OLANZapine DISINTEGR 10 MG TAB PO SCH (20:57)
[2016-05-30] MEDS: LORazepam 0.5 MG TAB PO PRN (22:15)
[2016-05-31] MEDS: ACETAMINOPHEN 325 MG TAB PO PRN (06:45)
[2016-05-31] MEDS: OLANZapine DISINTEGR 5 MG TAB PO SCH (08:50)
--- NOTE | 2016-05-31 12:31 | SOAPPROG ---
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 Pt was dx with SCZ 3 years ago when hospitalized in [place], [place] and was put on Haldol dec. He was then rediagnosed as Bipolar and put on [place]. He tapered off [place] and began not sleeping and having thought insertion and other psychotic sx. Pt symptoms are more consistent with Schizophrenia right now as pt has classic positive sx of SCZ and no mood symptoms. 05/31/16-pt has different delusions daily-on 06/09 he called IT with paranoia about being here Plan: Will continue Zyprexa 20 mg QHS Pt signed in Vol. [place] D/C'd as pt has no current mood sx AG Pt has shave order 05/31/16 12:31 Subjective: "Can I leave soon? I'm here voluntarily." Objective: Vital Signs Temp Pulse Resp BP Pulse Ox 36.9 C 76 14 102/72 97 05/31/16 06:00 05/31/16 06:00 05/31/16 06:00 05/31/16 06:00 05/31/16 06:00 Pt is A+O X4 mood-neutral affect-blunted denies AH but seem to be responding to internal stimuli thoughts-delayed, paranoid +thought blocking speech-monotone slept 8 hours last night memory-impaired due to psychosis conc-poor due to psychosis + paranoid delusions which vary day by day no NOE I/C-otqi-zvufky meds and has some insight to his DX - Time Spent With Patient Time Spent With Patient: ' - Pending Discharge Pending Discharge Within 24 Hours: No Pending Discharge Within 48 Hours: No ICD10 Worksheet Patient Problems: Problems Problem Status Diagnosed Bipolar 1 disorder Acute
[2016-05-31] MEDS: NICOTINE POLACRILEX 2 MG GUM B PRN (18:04)
[2016-05-31] MEDS: LORazepam 0.5 MG TAB PO PRN (19:16)
[2016-05-31] MEDS: OLANZapine DISINTEGR 10 MG TAB PO SCH (20:23)
[2016-06-01] MEDS: OLANZapine DISINTEGR 5 MG TAB PO SCH ×2 (08:24→20:32)
[2016-06-01] MEDS: ACETAMINOPHEN 325 MG TAB PO PRN (12:15)
--- NOTE | 2016-06-01 14:50 | SOAPPROG ---
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 Pt was dx with SCZ 3 years ago when hospitalized in [place], [place] and was put on Haldol dec. He was then rediagnosed as Bipolar and put on [place]. He tapered off [place] and began not sleeping and having thought insertion and other psychotic sx. Pt symptoms are more consistent with Schizophrenia right now as pt has classic positive sx of SCZ and no mood symptoms. 05/31/16-pt has different delusions daily-on 06/09 he called IT with paranoia about being here 06/01/16 denies any paranoia or AH today Plan: Will continue Zyprexa 20 mg QHS Pt signed in Vol. [place] D/C'd as pt has no current mood sx AG Pt has shave order 06/01/16 14:48 Subjective: Pt has no c/o and is appreciative of our help Objective: Vital Signs Temp Pulse Resp BP Pulse Ox 36.3 C 74 12 98/61 L 98 06/01/16 06:00 06/01/16 06:00 06/01/16 06:00 06/01/16 06:00 06/01/16 06:00 Pt is A+O x4 sgdj-zumbzts-ixtior depression affect-constricted denies current A/V H thoughts-less delayed, more spontaneous no S/H I sleep/appetite/energy level-wnl no thought disorder denies Par I or thought insertion conc-improving memory-intact I/Y-ygsu-rbkodost he has SCZ and is compliant with meds and tx - Time Spent With Patient Time Spent With Patient: 25' - Pending Discharge Pending Discharge Within 24 Hours: No Pending Discharge Within 48 Hours: No ICD10 Worksheet Patient Problems: Problems Problem Status Diagnosed Bipolar 1 disorder Acute
[2016-06-01] MEDS: OLANZapine DISINTEGR 10 MG TAB PO SCH (20:28)
[2016-06-02] MEDS: OLANZapine DISINTEGR 5 MG TAB PO SCH ×2 (08:39→20:05)
--- NOTE | 2016-06-02 11:22 | SOAPPROG ---
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 Pt was dx with SCZ 3 years ago when hospitalized in [place], [place] and was put on Haldol dec. He was then rediagnosed as Bipolar and put on [place]. He tapered off [place] and began not sleeping and having thought insertion, AH, and other psychotic sx. Pt symptoms are more consistent with Schizophrenia right now as pt has classic positive sx of SCZ and no mood symptoms. 05/31/16-pt has different delusions daily-on 06/09 he called IT with paranoia about being here 06/01/16 denies any paranoia or AH today 06/02/16-does admit to some thought insertion delusions at times Plan: Will continue Zyprexa 5mg QD and 20 mg QHS-denies any side effects and is compliant Pt signed in Vol. [place] D/C'd as pt has no current mood sx AG Pt has susan order CM in touch with pt's parents in [place], [place] 06/02/16 11:22 Subjective: Pt reports he has some racing thoughts due to thinking about things he wants to do upon D/C Objective: Vital Signs Temp Pulse Resp BP Pulse Ox 36.3 C 74 12 126/65 H 99 06/02/16 06:23 06/02/16 06:23 06/02/16 06:23 06/02/16 06:23 06/02/16 06:23 Pt is A+O x4 mood-anxious affect-constricted thoughts-logical speech-wnl denies current A/V H sleep/appetite/energy level-wnl decreased thought blocking some thought insertion delusions some par I I/J-good - Time Spent With Patient Time Spent With Patient: 20' - Pending Discharge Pending Discharge Within 24 Hours: No Pending Discharge Within 48 Hours: No ICD10 Worksheet Patient Problems: Problems Problem Status Diagnosed Bipolar 1 disorder Acute
[2016-06-02] MEDS: OLANZapine DISINTEGR 10 MG TAB PO SCH (20:05)
[2016-06-03] MEDS: OLANZapine DISINTEGR 5 MG TAB PO SCH ×2 (08:26→20:58)
[2016-06-03] MEDS: NICOTINE POLACRILEX 2 MG GUM B PRN (08:47)
--- NOTE | 2016-06-03 11:28 | SOAPPROG ---
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 Pt was dx with SCZ 3 years ago when hospitalized in [place], [place] and was put on Haldol dec. He was then rediagnosed as Bipolar and put on [place]. He tapered off [place] and began not sleeping and having thought insertion, AH, and other psychotic sx. Pt symptoms are more consistent with Schizophrenia right now as pt has classic positive sx of SCZ and no mood symptoms. 05/31/16-pt has different delusions daily-on 06/09 he called IT with paranoia about being here 06/01/16 denies any paranoia or AH today 06/02/16-does admit to some thought insertion delusions at times 06/03/16-pt dealing with SCZ Dx-has been perseverating over his roommate who is acutely psychotic-would like Zyprexa dose split into 2 even doses due to feeling dizzy in am-states he feels he made his "life too public" and talks about biking and a video of him on U-tube Plan: Will change Zyprexa to 15mg BID as per pt's request Pt signed in Vol. [place] D/C'd as pt has no current mood sx AG Pt has shave order CM in touch with pt's parents in [place] 06/03/16 11:45 Subjective: requests change in Zyprexa dose Objective: Vital Signs Temp Pulse Resp BP Pulse Ox 36.4 C 70 14 85/52 L 97 06/03/16 06:34 06/03/16 06:34 06/03/16 06:34 06/03/16 06:34 06/03/16 06:34 Pt is A+O x4 mood-anxious affect-blunted denies A/V H but heard name being called yesterday some delusions of thought insertion no S/H I thoughts-vague, perseverating on a video of him on [employer] speech-wnl sleep/appetite/energy level-wnl memory-intact IQ-above avg + Paranoid I about other's talking about him and a video of him on U-tube I/J-fair-good - Time Spent With Patient Time Spent With Patient: 25 - Pending Discharge Pending Discharge Within 24 Hours: No Pending Discharge Within 48 Hours: No ICD10 Worksheet Patient Problems: Problems Problem Status Diagnosed Bipolar 1 disorder Acute
[2016-06-03] MEDS: LORazepam 0.5 MG TAB PO PRN (12:22)
[2016-06-03] MEDS ORDERED: OLANZapine DISINTEGR 10 MG TAB PO SCH (21:00)
[2016-06-04] MEDS: OLANZapine DISINTEGR 5 MG TAB PO SCH ×2 (08:19→20:20)
--- NOTE | 2016-06-04 11:20 | SOAPPROG ---
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 Pt was dx with SCZ 3 years ago when hospitalized in [place], [place] and was put on Haldol dec. He was then rediagnosed as Bipolar and put on [place]. He tapered off [place] and began not sleeping and having thought insertion, AH, and other psychotic sx. Pt symptoms are more consistent with Schizophrenia right now as pt has classic positive sx of SCZ and no mood symptoms. 05/31/16-pt has different delusions daily-on 06/09 he called IT with paranoia about being here 06/01/16 denies any paranoia or AH today 06/02/16-does admit to some thought insertion delusions at times 06/03/16-pt dealing with SCZ Dx-has been perseverating over his roommate who is acutely psychotic-would like Zyprexa dose split into 2 even doses due to feeling dizzy in am-states he feels he made his "life too public" and talks about biking and a video of him on U-tube 06/04/16-pt states the med change in time has helped and he feels ready to D/C on Monday with parents with f/U at [facility] Plan: con't Zyprexa to 15mg BID as per pt's request Pt signed in Vol. pt has AG and has been going outside with no problems Pt has shave order CM in touch with pt's parents in [place], [place] 06/04/16 11:17 Subjective: "I feel ready to go on Monday." Objective: Vital Signs Temp Pulse Resp BP Pulse Ox 36.4 C 62 14 111/57 L 95 06/04/16 06:13 06/04/16 06:13 06/04/16 06:13 06/04/16 06:13 06/04/16 06:13 Pt is A+O x4 mood-euthymic affect-constricted denies A/V H denies current Par I sleep/appetite/energy level are wnl thoughts-logical no mention of [employer] video today denies S/H I speech-less delayed memory-intact conc-improving no NOE I/J-good - Time Spent With Patient Time Spent With Patient: 25' - Pending Discharge Pending Discharge Within 24 Hours: No Pending Discharge Within 48 Hours: Yes Pending Discharge Date: 06/06/16 Pending Discharge Time: 11:00 ICD10 Worksheet Patient Problems: Problems Problem Status Diagnosed Bipolar 1 disorder Acute
[2016-06-04] MEDS: NICOTINE POLACRILEX 2 MG GUM B PRN (17:32)
[2016-06-04] MEDS: LORazepam 0.5 MG TAB PO PRN (18:18)
[2016-06-05] MEDS: OLANZapine DISINTEGR 5 MG TAB PO SCH ×2 (11:09→20:58)
--- NOTE | 2016-06-05 11:11 | SOAPPROG ---
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 Pt was dx with SCZ 3 years ago when hospitalized in [place], [place] and was put on Haldol dec. He was then rediagnosed as Bipolar and put on [place]. He tapered off [place] and began not sleeping and having thought insertion, AH, and other psychotic sx. Pt symptoms are more consistent with Schizophrenia right now as pt has classic positive sx of SCZ and no mood symptoms. 05/31/16-pt has different delusions daily-on 06/09 he called IT with paranoia about being here 06/01/16 denies any paranoia or AH today 06/02/16-does admit to some thought insertion delusions at times 06/03/16-pt dealing with SCZ Dx-has been perseverating over his roommate who is acutely psychotic-would like Zyprexa dose split into 2 even doses due to feeling dizzy in am-states he feels he made his "life too public" and talks about biking and a video of him on U-tube 06/04/16-pt states the med change in time has helped and he feels ready to D/C on Monday with parents with f/U at IOP 06/05/16-yesterday pt began 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 pt has AG and has been going outside with no problems Pt has shave order CM in touch with pt's parents in [place], [place] 06/05/16 11:11 Subjective: Pt feels depressed Objective: Vital Signs Temp Pulse Resp BP Pulse Ox 36.5 C 71 14 113/55 L 99 06/05/16 06:57 06/05/16 06:57 06/05/16 06:57 06/05/16 06:57 06/05/16 06:57 Pt is A+O x4 mood-depressed affect-blunted denies AH but may still be having them +some Par thoughts-sl delayed speech-monotone slept 7 hours denies S/H I has been talking about being a pedophile memory-intact conc-poor I/J-fair - Time Spent With Patient Time Spent With Patient: 20' - Pending Discharge Pending Discharge Within 24 Hours: No Pending Discharge Within 48 Hours: No ICD10 Worksheet Patient Problems: Problems Problem Status Diagnosed Bipolar 1 disorder Acute
[2016-06-05] MEDS: ACETAMINOPHEN 325 MG TAB PO PRN (12:30)
[2016-06-05] MEDS: LORazepam 0.5 MG TAB PO PRN (13:07)
[2016-06-06] MEDS: OLANZapine DISINTEGR 5 MG TAB PO SCH ×2 (08:12→20:55)
[2016-06-06] MEDS: LORazepam 0.5 MG TAB PO PRN (09:22)
--- NOTE | 2016-06-06 11:27 | SOAPPROG ---
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 Pt was dx with SCZ 3 years ago when hospitalized in [place], [place] and was put on Haldol dec. He was then rediagnosed as Bipolar and put on [place]. He tapered off [place] and began not sleeping and having thought insertion, AH, and other psychotic sx. Pt symptoms are more consistent with Schizophrenia right now as pt has classic positive sx of SCZ and no mood symptoms. 05/31/16-pt has different delusions daily-on 06/09 he called IT with paranoia about being here 06/01/16 denies any paranoia or AH today 06/02/16-does admit to some thought insertion delusions at times 06/03/16-pt dealing with SCZ Dx-has been perseverating over his roommate who is acutely psychotic-would like Zyprexa dose split into 2 even doses due to feeling dizzy in am-states he feels he made his "life too public" and talks about biking and a video of him on U-tube 06/04/16-pt states the med change in time has helped and he feels ready to D/C on Monday with parents with f/U at [facility] 06/05/16-yesterday pt began talking that he feel he will become a pedophile-he is not ready for D/C tomorrow 06/06/16-parents coming to visit today-pt is not ready for D/C and he is okay with that-still c/o bad thoughts and paranoid I about another pt last night Plan: con't Zyprexa to 15mg BID as per pt's request Pt signed in Vol. pt has AG and has been going outside with no problems Pt has shave ashley CM in touch with pt's parents in [place] discussed with pt the dx of SCZ and that he does not have any sx of Bipolar D/O 06/06/16 11:24 Subjective: "I put the garbage can by my room last night because I was afraid of the rolando who plays poker." Objective: Vital Signs Temp Pulse Resp BP Pulse Ox 36.6 C 80 14 132/67 H 98 06/06/16 06:00 06/06/16 06:00 06/06/16 06:00 06/06/16 06:00 06/06/16 06:00 Pt is A+O x4 mood-anxious affect-const denies A/H + paranoid thoughts + "bad thoughts" at times no S/H I sleep/appetite-wnl speech-wnl thoughts-vague, paranoid-focused on a rolando he cycles with memory-intact no NOE conc-fair I/J-fair-good - Time Spent With Patient Time Spent With Patient: 25' - Pending Discharge Pending Discharge Within 24 Hours: No Pending Discharge Within 48 Hours: No ICD10 Worksheet Patient Problems: Problems Problem Status Diagnosed Bipolar 1 disorder Acute
[2016-06-07] MEDS: OLANZapine DISINTEGR 5 MG TAB PO SCH ×2 (08:51→20:51)
[2016-06-07] MEDS: LORazepam 0.5 MG TAB PO PRN (11:15)
--- NOTE | 2016-06-07 11:43 | SOAPPROG ---
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 Pt was dx with SCZ 3 years ago when hospitalized in [place], [place] and was put on Haldol dec. He was then rediagnosed as Bipolar and put on [place]. He tapered off [place] and began not sleeping and having thought insertion, AH, and other psychotic sx. Pt symptoms are more consistent with Schizophrenia right now as pt has classic positive sx of SCZ and no mood symptoms. 05/31/16-pt has different delusions daily-on 06/09 he called IT with paranoia about being here 06/01/16 denies any paranoia or AH today 06/02/16-does admit to some thought insertion delusions at times 06/03/16-pt dealing with SCZ Dx-has been perseverating over his roommate who is acutely psychotic-would like Zyprexa dose split into 2 even doses due to feeling dizzy in am-states he feels he made his "life too public" and talks about biking and a video of him on U-tube 06/04/16-pt states the med change in time has helped and he feels ready to D/C on Monday with parents with f/U at IOP 06/05/16-yesterday pt began talking that he feel he will become a pedophile-he is not ready for D/C tomorrow 06/06/16-parents coming to visit today-pt is not ready for D/C and he is okay with that-still c/o bad thoughts and paranoid I about another pt last night 06/07/16-pt states he is having thoughts that he may be a pedophile-he is requesting a change to a new medication Plan: con't Zyprexa to 15mg BID as per pt's request Pt signed in Vol. pt has AG and has been going outside with no problems Pt has shave order CM in touch with pt's parents in [place] discussed with pt the dx of SCZ and that he does not have any sx of Bipolar D/O Will start Abilify 10mg Daily-pt requesting a new medication 06/07/16 11:39 Subjective: C/o bad thoughts that he is a pedophile-denies S/H I Objective: Vital Signs Temp Pulse Resp BP Pulse Ox 36.8 C 74 12 121/56 H 98 06/07/16 06:00 06/07/16 06:00 06/07/16 06:00 06/07/16 06:00 06/07/16 06:00 Pt sitting with head in hands mood-"very bad:" affect-blunted denies A/V H no S/H I thoughts-paranoid speech-monotone + bad thoughts coming into his head sleep/appetite-wnl +some thought blocking conc-impaired due to psychosis I/J-good - Time Spent With Patient Time Spent With Patient: 20' - Pending Discharge Pending Discharge Within 24 Hours: No Pending Discharge Within 48 Hours: No ICD10 Worksheet Patient Problems: Problems Problem Status Diagnosed Bipolar 1 disorder Acute
[2016-06-07] MEDS: ARIPiprazole 10 MG TAB PO SCH (11:49)
[2016-06-08] MEDS: ARIPiprazole 10 MG TAB PO SCH (08:19)
[2016-06-08] MEDS ORDERED: ARIPiprazole 10 MG TAB PO SCH (11:32)
--- NOTE | 2016-06-08 11:36 | SOAPPROG ---
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 Pt was dx with SCZ 3 years ago when hospitalized in [place], [place] and was put on Haldol dec. He was then rediagnosed as Bipolar and put on [place]. He tapered off [place] and began not sleeping and having thought insertion, AH, and other psychotic sx. Pt symptoms are more consistent with Schizophrenia right now as pt has classic positive sx of SCZ and no mood symptoms. 05/31/16-pt has different delusions daily-on 06/09 he called IT with paranoia about being here 06/01/16 denies any paranoia or AH today 06/02/16-does admit to some thought insertion delusions at times 06/03/16-pt dealing with SCZ Dx-has been perseverating over his roommate who is acutely psychotic-would like Zyprexa dose split into 2 even doses due to feeling dizzy in am-states he feels he made his "life too public" and talks about biking and a video of him on U-tube 06/04/16-pt states the med change in time has helped and he feels ready to D/C on Monday with parents with f/U at IOP 06/05/16-yesterday pt began talking that he feel he will become a pedophile-he is not ready for D/C tomorrow 06/06/16-parents coming to visit today-pt is not ready for D/C and he is okay with that-still c/o bad thoughts and paranoid I about another pt last night 06/07/16-pt states he is having thoughts that he may be a pedophile-he is requesting a change to a new medication 06/08/16-c/o feeling people can read his thoughts, having intrusive thoughts, fear of being in danger Plan: con't Zyprexa to 15mg BID as per pt's request Pt signed in Vol. pt has AG and has been going outside with no problems Pt has shave order CM in touch with pt's parents in [place] discussed with pt the dx of SCZ and that he does not have any sx of Bipolar D/O Will start Abilify 10mg Daily-pt requesting a new medication Abilify increased to 15mg QD 06/08/16 06/08/16 11:34 Subjective: "The Abilify helped yesterday, but not today." Objective: Vital Signs Temp Pulse Resp BP Pulse Ox 36.8 C 62 12 133/71 H 98 06/08/16 06:00 06/08/16 06:00 06/08/16 06:00 06/08/16 06:00 06/08/16 06:00 Pt is A+O x4 mood-anxious affect-constricted denies A/V H + delusions that people can read his mind + par I + intrusive thoughts no S/H I sleep/appetite-wnl memory-intact conc-air no NOE I/J-good - Time Spent With Patient Time Spent With Patient: 20' - Pending Discharge Pending Discharge Within 24 Hours: No Pending Discharge Within 48 Hours: No ICD10 Worksheet Patient Problems: Problems Problem Status Diagnosed Bipolar 1 disorder Acute
[2016-06-08] MEDS: OLANZapine DISINTEGR 5 MG TAB PO SCH ×2 (12:16→21:20)
[2016-06-08] MEDS: LORazepam 0.5 MG TAB PO PRN (14:37)
[2016-06-08] MEDS: NICOTINE POLACRILEX 2 MG GUM B PRN (17:53)
[2016-06-09] MEDS: OLANZapine DISINTEGR 5 MG TAB PO SCH ×2 (08:17→21:04)
--- NOTE | 2016-06-09 10:34 | SOAPPROG ---
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 Pt was dx with SCZ 3 years ago when hospitalized in [place], [place] and was put on Haldol dec. He was then rediagnosed as Bipolar and put on [place]. He tapered off [place] and began not sleeping and having thought insertion, AH, and other psychotic sx. Pt symptoms are more consistent with Schizophrenia right now as pt has classic positive sx of SCZ and no mood symptoms. 05/31/16-pt has different delusions daily-on 06/09 he called IT with paranoia about being here 06/01/16 denies any paranoia or AH today 06/02/16-does admit to some thought insertion delusions at times 06/03/16-pt dealing with SCZ Dx-has been perseverating over his roommate who is acutely psychotic-would like Zyprexa dose split into 2 even doses due to feeling dizzy in am-states he feels he made his "life too public" and talks about biking and a video of him on U-tube 06/04/16-pt states the med change in time has helped and he feels ready to D/C on Monday with parents with f/U at IOP 06/05/16-yesterday pt began talking that he feel he will become a pedophile-he is not ready for D/C tomorrow 06/06/16-parents coming to visit today-pt is not ready for D/C and he is okay with that-still c/o bad thoughts and paranoid I about another pt last night 06/07/16-pt states he is having thoughts that he may be a pedophile-he is requesting a change to a new medication 06/08/16-c/o feeling people can read his thoughts, having intrusive thoughts, fear of being in danger 06/09/16-called family friend last night and reported he wanted to "make a will because I f--ed up." Plan: con't Zyprexa to 15mg BID as per pt's request Pt signed in Vol. pt has AG and has been going outside with no problems Pt has shave order CM in touch with pt's parents in [place] discussed with pt the dx of SCZ and that he does not have any sx of Bipolar D/O Will start Abilify 10mg Daily-pt requesting a new medication Abilify increased to 20 mg QD 06/09/16 will order CBC with diff and consider Clozaril 1:1 ordered for safety due to pt stating he wanted to make a will-per staff request 06/09/16 10:33 Subjective: c/i continued intrusive thoughts Objective: Vital Signs Temp Pulse Resp BP Pulse Ox 36.4 C 70 12 129/64 H 99 06/09/16 06:23 06/09/16 06:23 06/09/16 06:23 06/09/16 06:23 06/09/16 06:23 Pt is A+O distracted mood-anxious affect-constricted thoughts-paranoid, feels he has made mistakes speech-monotone, vague sleep/appetite-wnl appears to be responding to internal stimuli but denies A/V H denies S/H I but called about making a will last night + delusions-vary from day to day about people watching him, wanting to hurt him , etc memory-intact conc-poor no NOE I/J-good - Time Spent With Patient Time Spent With Patient: 20' - Pending Discharge Pending Discharge Within 24 Hours: No Pending Discharge Within 48 Hours: No ICD10 Worksheet Patient Problems: Problems Problem Status Diagnosed Bipolar 1 disorder Acute
[2016-06-09] MEDS: LORazepam 0.5 MG TAB PO PRN ×2 (10:35→14:45)
[2016-06-10] MEDS: OLANZapine DISINTEGR 5 MG TAB PO SCH (08:19)
[2016-06-10] MEDS: ARIPiprazole 10 MG TAB PO SCH (08:20)
[2016-06-10] MEDS ORDERED: ARIPiprazole 5 MG TAB PO SCH (09:00)
[2016-06-10] MEDS ORDERED: ARIPiprazole 10 MG TAB PO SCH (09:00)
[2016-06-10] MEDS: LORazepam 0.5 MG TAB PO PRN (10:49)
--- NOTE | 2016-06-10 10:57 | SOAPPROG ---
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 Pt was dx with SCZ 3 years ago when hospitalized in [place], [place] and was put on Haldol dec. He was then rediagnosed as Bipolar and put on [place]. He tapered off [place] and began not sleeping and having thought insertion, AH, and other psychotic sx. Pt symptoms are more consistent with Schizophrenia right now as pt has classic positive sx of SCZ and no mood symptoms. 05/31/16-pt has different delusions daily-on 06/09 he called IT with paranoia about being here 06/01/16 denies any paranoia or AH today 06/02/16-does admit to some thought insertion delusions at times 06/03/16-pt dealing with SCZ Dx-has been perseverating over his roommate who is acutely psychotic-would like Zyprexa dose split into 2 even doses due to feeling dizzy in am-states he feels he made his "life too public" and talks about biking and a video of him on U-tube 06/04/16-pt states the med change in time has helped and he feels ready to D/C on Monday with parents with f/U at IOP 06/05/16-yesterday pt began talking that he feel he will become a pedophile-he is not ready for D/C tomorrow 06/06/16-parents coming to visit today-pt is not ready for D/C and he is okay with that-still c/o bad thoughts and paranoid I about another pt last night 06/07/16-pt states he is having thoughts that he may be a pedophile-he is requesting a change to a new medication 06/08/16-c/o feeling people can read his thoughts, having intrusive thoughts, fear of being in danger 06/09/16-called family friend last night and reported he wanted to "make a will because I f--ed up." 06/10/16-pt states he felt better this morning but now is having bad thoughts about being a pedophile or a terrorist-he was given psychoed about that his is part of his Schizophrenia-he will use art and music today to distract his thoughts because these are activities that don't stress him out Plan: con't Zyprexa to 15mg BID as per pt's request Pt signed in Vol. pt has AG and has been going outside with no problems Pt has shave order CM in touch with pt's parents in [place] and they visited 06/06/16 discussed with pt the dx of SCZ and that he does not have any sx of Bipolar D/O Abilify increased to 20 mg QD 06/09/16 will order CBC with diff and consider Clozaril 1:1 ordered for safety due to pt stating he wanted to make a will-per staff request on06/09/16-now off 06/10/16 --Will continue Abilify 20mg QD and decrease Zyprexa to 10mg BID consider giving Abilify Maitaina next week CBC drawn in case Clozaril trial indicated Family leaving for [place] on 06/20/16 and want to take pt with them 06/10/16 10:59 Subjective: " I keep having these back thoughts and fear. I just want to return to be with my family." Objective: Vital Signs Temp Pulse Resp BP Pulse Ox 36.4 C 70 14 102/53 L 94 06/10/16 06:31 06/10/16 06:31 06/10/16 06:31 06/10/16 06:31 06/10/16 06:31 Pt is A+O x4 mood-anxious affect-constricted denies S/H I denies A/V H +intrusive paranoid thoughts sleep/appetite-wnl conc-poor memory-intact Delusions vary day by day speech-monotone thoughts-paranoid, vague no NOE I/J-fair-good - Time Spent With Patient Time Spent With Patient: 25' - Pending Discharge Pending Discharge Within 24 Hours: No Pending Discharge Within 48 Hours: No ICD10 Worksheet Patient Problems: Problems Problem Status Diagnosed Bipolar 1 disorder Acute
[2016-06-10] MEDS: NICOTINE POLACRILEX 2 MG GUM B PRN (11:35)
[2016-06-10 14:31] LABS: % IMMATURE GRANULYOCYTES 0.5 % (0.0-1.1); ABSOLUTE IMMATURE GRANULOCYTES 0.02 10^3/uL (0.00-0.10); ADD DIFF? NO; ADD MORPH? NO; ADD SCAN? NO; ATYPICAL LYMPHOCYTE FLAG 10 (0-99); FRAGMENT RBC FLAG 0 (0-99); HEMATOCRIT 51.7 % (40.0-51.0); HEMOGLOBIN 16.9 g/dL (13.7-17.5); LEFT SHIFT FLG 0 (0-99); LIPEMIA HEMOLYSIS FLAG 80 (0-99); MEAN CELL HEMOGLOBIN 32.8 pg (27.9-34.1); MEAN CELL HEMOGLOBIN CONCENTR. 32.7 g/dL (32.4-36.7); MEAN CELL VOLUME 100.2 fL (81.5-99.8); MEAN PLATELET VOLUME 10.2 fL (8.7-11.7); PLATELET CLUMPS FLAG 0 (0-99); PLATELET COUNT 241 10^3/uL (150-400); RED BLOOD CELL COUNT 5.16 10^6/uL (4.40-6.38); RED CELL DISTRIBUTION WIDTH 12.8 % (11.5-15.2)
[2016-06-10] MEDS: OLANZapine DISINTEGR 10 MG TAB PO SCH (20:48)
[2016-06-11] MEDS: ARIPiprazole 10 MG TAB PO SCH (08:22)
[2016-06-11] MEDS: NICOTINE POLACRILEX 2 MG GUM B PRN ×2 (08:23→12:50)
[2016-06-11] MEDS: OLANZapine DISINTEGR 10 MG TAB PO SCH ×2 (08:23→20:38)
[2016-06-11] MEDS: ACETAMINOPHEN 325 MG TAB PO PRN (08:23)
[2016-06-11] MEDS: LORazepam 0.5 MG TAB PO PRN (12:49)
[2016-06-12] MEDS: OLANZapine DISINTEGR 10 MG TAB PO SCH ×2 (08:22→20:51)
[2016-06-12] MEDS: ARIPiprazole 10 MG TAB PO SCH (08:22)
[2016-06-12] MEDS: LORazepam 0.5 MG TAB PO PRN (13:47)
--- NOTE | 2016-06-12 19:25 | SOAPPROG ---
SOAP Progress Note Assessment/Plan: Assessment: Plan: 06/12/16 19:26 Remains quite ill. CCM. Subjective: LATE ENTRY FOR 06/11/16 Pt seen, discussed with staff, chart reviewed. He is engaging with me, telling his interval history. Remains isolative and anxious. Continued self-critical thoughts regarding being accused of being a pedophile, etc. Objective: Vital Signs Temp Pulse Resp BP Pulse Ox 36.7 C 96 14 122/63 H 97 06/12/16 06:14 06/12/16 06:14 06/12/16 06:14 06/12/16 06:14 06/12/16 06:14 Laboratory Results 06/10/16 06:00 MSE: Calm, though guarded. Affect is anxious, constricted, stable. Mood is "afraid." TP perseverative, discontinuous. TC reveals IOR's, paranoia, internal focus. - Time Spent With Patient Time Spent With Patient: 25" - Pending Discharge Pending Discharge Within 24 Hours: No Pending Discharge Within 48 Hours: No ICD10 Worksheet Patient Problems: Problems Problem Status Diagnosed Bipolar 1 disorder Acute
--- NOTE | 2016-06-12 19:30 | SOAPPROG ---
SOAP Progress Note Assessment/Plan: Assessment: Plan: 06/12/16 19:26 Remains quite ill. CCM. 06/12/16 19:31 Continued improvement. CCM. Subjective: Pt seen, discussed with staff. Offers no c/o's. Compliant with meds. Objective: Vital Signs Temp Pulse Resp BP Pulse Ox 36.7 C 96 14 122/63 H 97 06/12/16 06:14 06/12/16 06:14 06/12/16 06:14 06/12/16 06:14 06/12/16 06:14 Laboratory Results 06/10/16 06:00 MSE: Calmer though guarded. Affect is brighter, smiling and interactive. Mood is "pretty good." TP abbreviated, linear at times. TC reveals continued IOR's. - Time Spent With Patient Time Spent With Patient: 15" - Pending Discharge Pending Discharge Within 24 Hours: No Pending Discharge Within 48 Hours: No ICD10 Worksheet Patient Problems: Problems Problem Status Diagnosed Bipolar 1 disorder Acute
[2016-06-13] MEDS: ARIPiprazole 10 MG TAB PO SCH (08:32)
[2016-06-13] MEDS: OLANZapine DISINTEGR 10 MG TAB PO SCH ×2 (08:33→21:17)
[2016-06-13] MEDS: NICOTINE POLACRILEX 2 MG GUM B PRN (10:04)
[2016-06-13] MEDS: LORazepam 0.5 MG TAB PO PRN (11:44)
[2016-06-13] MEDS: ACETAMINOPHEN 325 MG TAB PO PRN (11:45)
--- NOTE | 2016-06-13 13:56 | SOAPPROG ---
SOAP Progress Note Assessment/Plan: Assessment:Patient with schizophrenia with continued psychosis. He is reporting people continue to read his mind. He reports fears that they will corn picker his "bad thoughts." He remains distressed by these thoughts. He finds slight benefit from his current medications. He mainly focuses on the benefit from the Ativan. He is also paranoid of being arrested due to the bad thoughts. No current safety issues. Medication compliance. Sleeping well. Plan: Will continue taper from Zyprexa to Abilify. 06/13/16 13:51 06/13/16 14:00 06/13/16 14:04 Subjective: "Sorry I have bad thoughts at times." My current thoughts are of racist things. I didn't mean it at all. I used to live with a black rolando named Caden Deal." He reports feeling that people do read his mind, but he adds, "It's just in my mind. I can control my mind and my body to. I have really bad thoughts." He feels the medications have helped but not enough. He is really paranoid that some of the informtaion he is sharing will be used to charge him with a felony. Objective: Vital Signs Temp Pulse Resp BP Pulse Ox 36.6 C 91 14 108/72 98 06/13/16 03:50 06/13/16 03:50 06/13/16 03:50 06/13/16 03:50 06/13/16 03:50 Laboratory Results 06/10/16 06:00 male appropriately dressed and groomed. Good eye contact. Limited arm movement when he walks. Speech- Distressed tone. Mood- "Doing well." Affect- Incongruent- flat. Thought Process- Perseverating about his bad thoughts. Thought Content - No Si/HI. No AH/VH. +Paranoia, ideas of reference. Insight - Poor. Judgment - Fair. - Time Spent With Patient Time Spent With Patient: 30 minutes - Pending Discharge Pending Discharge Within 24 Hours: No Pending Discharge Within 48 Hours: No ICD10 Worksheet Patient Problems: Problems Problem Status Diagnosed Bipolar 1 disorder Acute
[2016-06-14 06:28] VITALS: O2SAT 97
[2016-06-14] MEDS: OLANZapine DISINTEGR 10 MG TAB PO SCH ×2 (08:21→20:41)
[2016-06-14] MEDS: ARIPiprazole 10 MG TAB PO SCH (08:21)
[2016-06-14] MEDS: LORazepam 0.5 MG TAB PO PRN (09:53)
[2016-06-14] MEDS: NICOTINE POLACRILEX 2 MG GUM B PRN (20:44)
[2016-06-15 06:11] VITALS: BP 110/57; PULSE 74; RESP 12; TEMP 97.8
[2016-06-15] MEDS: OLANZapine DISINTEGR 10 MG TAB PO SCH (08:06)
[2016-06-15] MEDS: ARIPiprazole 10 MG TAB PO SCH (08:06)
--- NOTE | 2016-06-15 08:58 | SOAPPROG ---
SOAP Progress Note Assessment/Plan: Assessment: Plan: 06/12/16 19:26 Remains quite ill. CCM. 06/12/16 19:31 Continued improvement. CCM. 06/15/16 08:58 Doing well. WIll finalize plan for d/c tomorrow. Subjective: LATE ENTRY FOR 06/14/15 Pt seen, discussed with staff. Pleasant and interactive. Reviewed d/c and tx plans. States he is ready to go home. CC working with family to finalize plan. Pt will drive to [place] on d/c and then stay with parents. Objective: Vital Signs Temp Pulse Resp BP Pulse Ox 36.6 C 74 12 110/57 L 97 06/15/16 06:00 06/15/16 06:00 06/15/16 06:00 06/15/16 06:00 06/15/16 06:00 Laboratory Results 06/10/16 06:00 MSE: Calm, coop. Affect is blunted, stable, approp. Mood is "good." TP linear. TC reveals no intrusive thoughts at this time. Denies current AH's. No SI. I/J appear good with good understanding of illness and treatment. - Time Spent With Patient Time Spent With Patient: 25" - Pending Discharge Pending Discharge Within 24 Hours: Yes Pending Discharge Date: 06/16/16 Pending Discharge Time: 11:00 ICD10 Worksheet Patient Problems: Problems Problem Status Diagnosed Bipolar 1 disorder Acute
== END 2016-06-15 09:34 | disposition home or self-care (01) | DRG 885 ==
LOC: EEVIPCON 20:12 → BBEH 05-21 18:00
PROVIDERS: ADMIT Psychiatry & Neurology Behavioral Neurology & Neuropsychiatry; ATTEND Psychiatry & Neurology Behavioral Neurology & Neuropsychiatry
DX: F20.9 Schizophrenia, unspecified (principal); F17.200 Nicotine dependence, unspecified, uncomplicated; Z23 Encounter for immunization
CPT/HCPCS: G0008; G0477; G0480; J0515